=== PATIENT | female | born 1995 | race Caucasian/White ===

== ENCOUNTER 2024-08-06 09:43 | Emergency (ER) | payer OTHER ==
[~2024-08-06] VITALS: Ht 165.1 cm; Wt 79.0 kg
[2024-08-06 09:53] VITALS: O2SAT 100
[2024-08-06 10:30] VITALS: BP 114/69; PULSE 109; RESP 18; TEMP 36.72516; O2SAT 100
== END 2024-08-06 11:00 | disposition left against medical advice (07) ==
LOC: ER 09:56
DX: R56.9 Unspecified convulsions (principal); Z53.21 Procedure and treatment not carried out due to patient leaving prior to being seen by health care provider
CPT/HCPCS: 99283